=== PATIENT | female | born 1965 | race Caucasian/White ===

== ENCOUNTER 2023-06-10 10:01 | Outpatient (OUT) | payer BC, SELFPAY ==
--- NOTE | 2023-06-10 10:08 | XR_ITS ---
The [address] [address] Patient Name: NORBERTO TALLEY MRN: [id number] date: 1965 Sex: F Assigned Patient Location: [facility] Current Patient Location: [facility] Accession/Order Number: [id number] Exam Date: 06/10/2023 11:00 Report Date: 06/10/2023 12:21 At the request of: ZHOU RANKIN Procedure: XR chest 2V EXAM: XR chest 2V HISTORY: PRE OP EXAM COMPARISON: None. TECHNIQUE: PA and lateral views of the chest. FINDINGS: The cardiomediastinal silhouette is enlarged. No focal consolidation is identified. There is no pneumothorax. No pleural effusion is noted. The osseous structures are intact. XR/XR chest 2V IMPRESSION: No acute cardiopulmonary process. Electronically authenticated by: JACKIE MOSES Date: 06/10/2023 12:21
--- NOTE | 2023-06-10 10:08 | ECG_ITS ---
The [facility] Test Date: 2023-06-10 Pat Name: NORBERTO TALLEY Department: Room: - Gender: Female [employer]: : 1965 Requested By: ZHOU RANKIN Order Number: [id number] Reading MD: DENIS MARTE Measurements Intervals [place] Rate: 49 P: 58 MN: 162 QRS: 47 QRSD: 68 T: 44 QT: 415 QTc: 377 Interpretive Statements SINUS BRADYCARDIA LOW QRS VOLTAGE IN PRECORDIAL LEADS [QRS DEFLECTION < 1.0 mV IN CHEST LEADS] POSSIBLE ANTERIOR MYOCARDIAL INFARCTION [30 ms Q WAVE IN V3/V4, OR R < 0.2 mV IN V4], OF INDETERMINATE AGE No previous ECG available for comparison Electronically Signed On 06-12-2023 18:18:19 EDT by DENIS MARTE
[2023-06-10 11:16] LABS: Basophils Absolute Auto 0.1 10^3/uL (0.0-0.1); Basophils Percent Auto 0.7 % (0.2-2.0); Eosinophils Absolute Auto 0.3 10^3/uL (0.0-0.7); Eosinophils Percent Auto 3.3 % (0.9-7.0); Hematocrit 48.2 % (36.0-48.0); Hemoglobin 15.7 g/dL (12.0-16.0); Immature Granulocytes Abs Auto 0.03 10^3/uL (0.00-0.03); Immature Granulocytes Pct Auto 0.4 % (0.0-0.5); Lymphocytes Absolute Auto 1.9 10^3/uL (1.2-3.8); Mean Corpuscular HGB Conc 32.6 g/dL (29.9-35.2); Mean Corpuscular Hemoglobin 30.5 pg (26.7-34.0); Mean Corpuscular Volume 93.6 fL (81.0-99.0); Mean Platelet Volume 10.3 fL (9.5-13.5); Monocytes Absolute Auto 0.6 10^3/uL (0.3-0.8); Monocytes Percent Auto 6.5 % (1.7-12.0); Neutrophils Absolute Auto 5.7 10^3/uL (1.4-6.5); Neutrophils Percent Auto 67.1 % (43.0-75.0); Platelet Count 258 10^3/uL (150-450); Red Blood Count 5.15 10^6/uL (4.20-5.40); Red Cell Distribution Width 13.5 % (11.0-15.0); White Blood Count 8.5 10^3/uL (4.0-11.0)
[2023-06-10 11:27] LABS: INR 0.99; Partial Thromboplastin Time 28.4 sec (22.3-36.2); Prothrombin Time 10.5 sec (9.0-11.6)
[2023-06-10 11:34] LABS: Anion Gap 7.2; BUN Creatinine Ratio 24.1; Calcium 9.2 mg/dL (8.5-10.1); Carbon Dioxide 31.6 mmol/L (21.0-32.0); Chloride 102 mmol/L (98-107); Estimated GFR (African America >60 (>=60); Estimated GFR (Non-African Ame >60 (>=60); Glucose 97 mg/dL (74-106); Potassium 4.8 mmol/L (3.5-5.1); Sodium 136 mmol/L (136-145)
== END 2023-06-10 10:02 | disposition home or self-care (01) ==
LOC: PST 10:05
PROVIDERS: PCP Nurse Practitioner Family; Visit Provider Obstetrics & Gynecology
DX: Z01.810 Encounter for preprocedural cardiovascular examination (principal); Z01.812 Encounter for preprocedural laboratory examination; N95.0 Postmenopausal bleeding; I25.10 Atherosclerotic heart disease of native coronary artery without angina pectoris
CPT/HCPCS: 71046; 80048; 85025; 85610; 85730; 93005

== ENCOUNTER 2023-06-17 07:01 | Day surgery (SDC) | payer BC, SELFPAY ==
[2023-06-10 10:40] VITALS: BP 133/75; PULSE 54; RESP 20; TEMP 36.3; O2SAT 97; BMI 38.0
[2023-06-17] VITALS (12 sets, daily range): BP systolic 146–178; BP diastolic 65–93; PULSE 58–77; RESP 15–28; TEMP 36.2–36.7; O2SAT 92–100; BMI 38.0
[2023-06-17 07:17] LABS: Basophils Absolute Auto 0.1 10^3/uL (0.0-0.1); Basophils Percent Auto 0.9 % (0.2-2.0); Eosinophils Absolute Auto 0.3 10^3/uL (0.0-0.7); Eosinophils Percent Auto 3.8 % (0.9-7.0); Hematocrit 47.6 % (36.0-48.0); Hemoglobin 15.5 g/dL (12.0-16.0); Immature Granulocytes Abs Auto 0.02 10^3/uL (0.00-0.03); Immature Granulocytes Pct Auto 0.2 % (0.0-0.5); Lymphocytes Absolute Auto 1.6 10^3/uL (1.2-3.8); Lymphocytes Percent Auto 19.9 % (20.5-60.0); Mean Corpuscular HGB Conc 32.6 g/dL (29.9-35.2); Mean Corpuscular Hemoglobin 30.2 pg (26.7-34.0); Mean Corpuscular Volume 92.6 fL (81.0-99.0); Monocytes Absolute Auto 0.6 10^3/uL (0.3-0.8); Monocytes Percent Auto 7.2 % (1.7-12.0); Neutrophils Absolute Auto 5.6 10^3/uL (1.4-6.5); Platelet Count 248 10^3/uL (150-450); Red Blood Count 5.14 10^6/uL (4.20-5.40); Red Cell Distribution Width 13.3 % (11.0-15.0); White Blood Count 8.2 10^3/uL (4.0-11.0)
[2023-06-17] MEDS: LACTATED RINGER'S SOLUTION 1,000 ML 50 ML IV (07:26)
[2023-06-17 07:57] LABS: HCG Quantitative 2 mIU/mL
--- NOTE | 2023-06-17 08:56 | PM.ONB ---
Brief Operative Note Date of procedure: 06/17/23 Pre-op diagnosis: cervical polyp, pmb, thickened endometrial lining Post-op diagnosis: same as pre-op Procedure: NAME OF PROCEDURE: [ D&c hysteroscopy with myosure, removal of endometrial polyp and removal of cervical polyp] PROCEDURE: The patient was taken back to the Operating Room where she was prepped and draped in normal sterile fashion after being placed under general anesthesia without difficulty. She was also placed in the dorsal lithotomy position. A weighted speculum was placed in the patient?s vagina. The anterior lip of the cervix was identified and grasped with a single tooth tenaculum. Cervical polyp was identified and removed using the ring forcep. The patient?s uterus was then sounded roughly to [? 8] cm. The patient was then gently dilated using Hegar dilators. The hysteroscope was passed through the patient?s cervix into the uterus. Both ostia were identified. fluffy appearing endometrium. No gross evidence of malignancy, no gross evidence of polyps or fibroids. The MyoSure was then placed through the scope into the uterus, endometrial sampling in all quadrants was then performed. removal of endometrial polyp using the myosure. the myosure apparatus was removed along with the hysteroscope from the patient's uterus. At that point, gentle curettage was performed until a gritty texture was noted. The endometrial curettings were sent out to pathology. The single tooth tenaculum was then removed from the patient's anterior lip of the cervix where excellent hemostasis was noted. All instruments were removed from the patient?s vagina. The patient tolerated the procedure well. Sponge, lap and needle counts were correct times two. The patient was taken to the Recovery Room in stable condition.Room in stable condition. Anesthesia: GETA Surgeon: Jose Juan Simpson Estimated blood loss (mL): 5 Pathology: other (cervical polyp, endometrial currettings, endometrial polyp) Condition: stable Disposition: PACU
== END 2023-06-17 10:20 | disposition home or self-care (01) ==
PROVIDERS: PCP Family Medicine; Visit Provider Obstetrics & Gynecology
PROC: (CPT 58558; principal; 2023-06-17 08:10)
DX: N95.0 Postmenopausal bleeding (principal); D64.9 Anemia, unspecified; Z79.01 Long term (current) use of anticoagulants; I25.10 Atherosclerotic heart disease of native coronary artery without angina pectoris; I25.2 Old myocardial infarction; N84.1 Polyp of cervix uteri; F41.9 Anxiety disorder, unspecified; E78.5 Hyperlipidemia, unspecified; G25.81 Restless legs syndrome; Q61.3 Polycystic kidney, unspecified; F17.210 Nicotine dependence, cigarettes, uncomplicated; R93.89 Abnormal findings on diagnostic imaging of other specified body structures
CPT/HCPCS: 58558; 36415; 84702; 85025; 88305; J2704

== ENCOUNTER 2023-07-29 10:01 | Outpatient (OUT) | payer BC, SELFPAY ==
[2023-07-29 10:52] LABS: Basophils Absolute Auto 0.1 10^3/uL (0.0-0.1); Basophils Percent Auto 0.9 % (0.2-2.0); Eosinophils Absolute Auto 0.2 10^3/uL (0.0-0.7); Eosinophils Percent Auto 2.6 % (0.9-7.0); Hematocrit 44.8 % (36.0-48.0); Hemoglobin 14.6 g/dL (12.0-16.0); Immature Granulocytes Abs Auto 0.02 10^3/uL (0.00-0.03); Immature Granulocytes Pct Auto 0.3 % (0.0-0.5); Lymphocytes Absolute Auto 1.7 10^3/uL (1.2-3.8); Lymphocytes Percent Auto 21.9 % (20.5-60.0); Mean Corpuscular HGB Conc 32.6 g/dL (29.9-35.2); Mean Corpuscular Hemoglobin 30.5 pg (26.7-34.0); Mean Corpuscular Volume 93.7 fL (81.0-99.0); Mean Platelet Volume 10.1 fL (9.5-13.5); Monocytes Absolute Auto 0.6 10^3/uL (0.3-0.8); Monocytes Percent Auto 7.7 % (1.7-12.0); Neutrophils Absolute Auto 5.1 10^3/uL (1.4-6.5); Neutrophils Percent Auto 66.6 % (43.0-75.0); Platelet Count 246 10^3/uL (150-450); Red Blood Count 4.78 10^6/uL (4.20-5.40); Red Cell Distribution Width 13.5 % (11.0-15.0); White Blood Count 7.7 10^3/uL (4.0-11.0)
[2023-07-29 11:13] LABS: INR 0.98; Partial Thromboplastin Time 28.4 sec (22.3-36.2); Prothrombin Time 10.4 sec (9.0-11.6)
[2023-07-29 12:02] LABS: Alanine Aminotransferase 31 U/L (14-59); Albumin Globulin Ratio 1.1; Albumin Level 3.7 g/dL (3.4-5.0); Alkaline Phosphatase 99 U/L (46-116); Anion Gap 16.5; Aspartate Amino Transferase 22 U/L (15-37); BUN Creatinine Ratio 17.2; Bilirubin Direct 0.1 mg/dL (0.0-0.2); Bilirubin Total 0.4 mg/dL (0.2-1.0); Calcium 8.8 mg/dL (8.5-10.1); Carbon Dioxide 25.2 mmol/L (21.0-32.0); Chloride 103 mmol/L (98-107); Estimated GFR (African America >60 (>=60); Estimated GFR (Non-African Ame >60 (>=60); Globulin 3.3 g/dL; Glucose 98 mg/dL (74-106); Potassium 4.7 mmol/L (3.5-5.1); Sodium 140 mmol/L (136-145)
== END 2023-07-29 10:02 | disposition home or self-care (01) ==
LOC: PST 10:02
PROVIDERS: PCP Family Medicine; Visit Provider Obstetrics & Gynecology
DX: Z01.812 Encounter for preprocedural laboratory examination (principal); N20.1 Calculus of ureter; R31.9 Hematuria, unspecified
CPT/HCPCS: 36415; 80048; 80076; 85025; 85610; 85730; 86850; 86900; 86901

== ENCOUNTER 2023-08-03 06:10 | Day surgery (SDC) | payer BC, SELFPAY ==
[2023-07-29 10:35] VITALS: BP 140/73; PULSE 58; RESP 20; TEMP 36.3; O2SAT 94; BMI 38.8
[2023-08-03] VITALS (8 sets, daily range): BP systolic 102–141; BP diastolic 51–77; PULSE 55–64; RESP 13–20; TEMP 36.1; O2SAT 92–98; BMI 38.4
[2023-08-03 06:18] LABS: Basophils Absolute Auto 0.1 10^3/uL (0.0-0.1); Basophils Percent Auto 0.8 % (0.2-2.0); Eosinophils Absolute Auto 0.4 10^3/uL (0.0-0.7); Eosinophils Percent Auto 4.6 % (0.9-7.0); Hematocrit 45.5 % (36.0-48.0); Hemoglobin 14.7 g/dL (12.0-16.0); Immature Granulocytes Abs Auto 0.02 10^3/uL (0.00-0.03); Immature Granulocytes Pct Auto 0.2 % (0.0-0.5); Lymphocytes Absolute Auto 1.8 10^3/uL (1.2-3.8); Mean Corpuscular HGB Conc 32.3 g/dL (29.9-35.2); Mean Corpuscular Hemoglobin 29.8 pg (26.7-34.0); Mean Corpuscular Volume 92.1 fL (81.0-99.0); Mean Platelet Volume 10.3 fL (9.5-13.5); Monocytes Absolute Auto 0.7 10^3/uL (0.3-0.8); Monocytes Percent Auto 8.8 % (1.7-12.0); Neutrophils Absolute Auto 5.2 10^3/uL (1.4-6.5); Neutrophils Percent Auto 63.6 % (43.0-75.0); Platelet Count 257 10^3/uL (150-450); Red Blood Count 4.94 10^6/uL (4.20-5.40); Red Cell Distribution Width 13.4 % (11.0-15.0); White Blood Count 8.3 10^3/uL (4.0-11.0)
[2023-08-03] MEDS: LACTATED RINGER'S SOLUTION 1,000 ML 50 ML IV (06:58)
[2023-08-03] MEDS: CEFAZOLIN SODIUM 2,000 MG in 0.9 % SODIUM CHLORIDE 50 ML 100 MG IV (07:34)
[2023-08-03] MEDS: MIDAZOLAM HCL 2 MG/2 ML VIAL IV (07:36)
--- NOTE | 2023-08-15 08:02 | PM.ONB ---
Brief Operative Note Date of procedure: 08/15/23 Pre-op diagnosis: menorrhagia, pelvic pain, dysmenorrhea Post-op diagnosis: same as pre-op Procedure: Pt was taken back to operating room she was prepped and draped in normal sterile fashion and placed in dorsal lithotomy position, anesthesia had difficulty with pt becoming bradycardic and hypotensive, anesthesia discussed conserns with ventilation, at that time it was decided to abort procedure Anesthesia: FER Surgeon: Jose Juan Simpson Wine Specialist: Ruth Nair Estimated blood loss (mL): 0 Pathology: none sent Condition: stable Disposition: PACU
== END 2023-08-03 09:31 | disposition home or self-care (01) ==
PROVIDERS: PCP Family Medicine; Visit Provider Obstetrics & Gynecology
PROC: (CPT 840; principal; 2023-08-03 07:30)
DX: N85.2 Hypertrophy of uterus (principal); N95.0 Postmenopausal bleeding; D25.9 Leiomyoma of uterus, unspecified; I25.10 Atherosclerotic heart disease of native coronary artery without angina pectoris; I25.2 Old myocardial infarction; R00.1 Bradycardia, unspecified; Z53.8 Procedure and treatment not carried out for other reasons; I95.9 Hypotension, unspecified; F41.9 Anxiety disorder, unspecified; E78.5 Hyperlipidemia, unspecified; F17.210 Nicotine dependence, cigarettes, uncomplicated
CPT/HCPCS: 58570; 36415; 85025; J2704